=== PATIENT | male | born 1965 | race Caucasian/White ===

== ENCOUNTER 2017-02-02 02:16 | Emergency (ER) | payer BC ==
[~2017-02-02] VITALS: Ht 172.7 cm; Wt 94.3 kg
[2017-02-02] MEDS ORDERED: AUGMENTIN 875-1 EACH PO (02:34)
[2017-02-02] MEDS ORDERED: CETIRIZINE HCL10 MG PO (02:35)
[2017-02-02] MEDS ORDERED: PLAVIX75 M1 PO (02:35)
[2017-02-02] MEDS ORDERED: LIPITOR80 MG PO (02:35)
[2017-02-02] MEDS ORDERED: HYDROCHLOROTH12.5 M1 PO (02:36)
[2017-02-02] MEDS ORDERED: METOPROLOL25 MG PO (02:36)
[2017-02-02] MEDS ORDERED: VASCEPA1 GM PO (02:37)
[2017-02-02] MEDS ORDERED: PREDNISONE 20MG20 MG PO (03:25)
--- NOTE | 2017-02-02 03:26 | Emergency Room Report ---
History of Present Illness Time Seen by MD Daley Presenting Problem in Triage Pt arrived:Walked Presenting Problem:WAS DX WITH UPPER RESPIRATORY INFECTION ABOUT 2 WEEKS AGO, AND WAS FEELING BETTER THEN TONIGHT HE STARTED A COUGHING FIT AND FELT SOMETHING "POP" IN THE LOWER RIGHT SIDE UNDER HIS RIBS. 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 N Clinical Suspician of Infection? N Mental Status: 1 - Regular (Normal Baseline) Sepsis Risk:Low Sepsis Risk Have you (or family members/close friends) recently traveled outside the [place]? N If Yes, where/when: Have you had exposure to infectious disease within the past month? N TB? Other? Specify: Source patient, RN notes reviewed, family, old records Exam Limitations no limitations Comment after coughing episode has lt ant/lat rib pain- has bronchial illness and was seen by pcp this am Cardiac Chest Pain Chest pain indicative of cardiac No Timing/Duration this evening Severity moderate ALLERGIES Coded Allergies: No Known Allergies (02/02/17) Home Medications Reported Medications Amoxicillin/Potassium Clav (Augmentin 875-125 Tablet) 1 EACH PO BID Atorvastatin Calcium (Atorvastatin) 40 MG PO DAILY CETIRIZINE HCL (Cetirizine 10MG) 10 MG PO DAILY Clopidogrel Bisulfate (Plavix) 75 MG PO DAILY Hydrochlorothiazide (Hydrochlorothiazide 12.5MG) 25 MG PO DAILY Metoprolol Tartrate (Metoprolol) 12.5 MG PO QAM Icosapent Ethyl (Vascepa) 1 GM PO BID History Medical History General CAD? Yes Angina: No PR: No Hypertension? No Hyperlipidemia? No CHF? No DVT? No PE? No COPD? No Asthma? No Anemia? No GERD? No Gastric ulcers? No GI Bleed? No Hernia? No Thyroid Problems? No Hypothyroidism? No CVA? No Seizures? No Diabetes? No Renal Insuffiency? No End Stage Renal Disease? No UTI? No Stones? No BPH? No GB Disease: No Nephritic Syndrome? No Asplenia? No Hepatitis? No Sickle Cell Disease? No Arthritis? No Migraines? No Cataracts? No Glaucoma? No MRSA? No HIV? No TB? No Anxiety? No Depression? No Cancer? No More? No Immunization Hx Ped.Immunizations UTD No DT/Tetanus Unknown Surgical Hx Previous Surgery?Y HEART CATH c 2 STENTS Social History Smoking Hx Smoker: Never Smoker Tobacco: No Alcohol Alcohol: No Drugs none Review of Systems All Other Systems Reviewed and Negative Constitutional denies fever Eyes denies drainage ENT denies: ear discharge, epistaxis, throat pain. Respiratory see HPI, cough, denies shortness of breath, other Cardiovascular denies chest pain, denies syncope Gastrointestinal denies abdominal pain, denies diarrhea, denies vomiting Genitourinary denies: dysuria, frequency, hesitancy, hematuria. Musculoskeletal denies back pain, denies joint pain, denies neck pain Skin denies rash Psychiatric/Neurological denies headache, denies seizure Physical Exam Vital Signs Vital Signs Date Time Temp Pulse Resp B/P Pulse O2 O2 Flow FiO2 Ox Delivery Rate 02/02 0229 98.1 73 16 132/89 96 - WBC >12,000 or <4,000 or 10% bands? 2 or more SIRS Criteria Met? B/P:132/89 MAP:103 Creatinine >2.0? UA output<0.5ml/kg/hr for 2 hrs? Platelet count >100,000? Lactate >2.0mmol/1? INR >1.2 or PTT > than 60 sec? Evidence of Organ Dysfunction? Provider documented clinical suspician of infection? N Sepsis Criteria Count: 0 Sepsis Risk: Low Sepsis Risk General Appearance no apparent distress Eye Exam - bilateral eye PERRL, bilateral eye EOMI Ear, Nose, Throat normal ENT inspection Neck supple Respiratory Status No: respiratory distress. Lung Sounds bilateral: rhonchi. 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 No Results/Orders Orders Procedure Date/time Status CHEST(2 VIEWS-NOT PORTABLE) 02/02 0238 Active XRAY/CT/US XRAY/CT/US XRAY chest XR interpretation by reviewed by me Xray Results normal/NAD, no fracture seen Departure Departure Time of Disposition 323 Disposition DC Home or Self Care(routine) Clinical Impression Primary Impression: Sprain of ribs Qualifiers: Encounter type: initial encounter Qualified Code: S23.41XA - Sprain of ribs, initial encounter Condition STABLE Referrals Demetrius Pino MD (Family) Patient Instructions DI for Cough -- Adult Additional Instructions fluids and use meds and see pcp for follow up Discharge Counseling Counseled pt/family regarding diagnosis, test results, medications/RX, follow up needs Prescriptions Current Visit Scripts Prednisone (Prednisone 20MG) 20 MG PO BID #10 TAB ED Critical Care Critical Care No at 0326
[2017-02-02 03:51] VITALS: BP 131/92
--- NOTE | 2017-02-02 06:37 | RADIOLOGY REPORT PS360 ---
CHEST(2 VIEWS-NOT PORTABLE) HISTORY: COUGH, PLEURAL PAIN ORDERING PHYSICIAN: Nathanael Goodrich MD PATIENT AGE: 52 years COMPARISON: None available FINDINGS: The cardiomediastinal silhouette and pulmonary vascularity are within normal limits. There is a 8 mm nodule in the right midlung which may be due to granuloma. The remaining lungs are clear. No acute bony anomalies IMPRESSION: Right midlung nodule, no acute finding
== END 2017-02-02 03:52 | disposition home or self-care (01) ==
LOC: ER 02:16
DX: S23.41XA Sprain of ribs, initial encounter (principal); I25.10 Atherosclerotic heart disease of native coronary artery without angina pectoris; R05 Cough

== ENCOUNTER → 2017-04-01 | Outpatient (CLI) | payer BC ==
[~2017-04-01] MED LIST: AUGMENTIN 875-1 EACH PO; CETIRIZINE HCL10 MG PO; HYDROCHLOROTH12.5 M1 PO; LIPITOR80 MG PO; METOPROLOL25 MG PO; PLAVIX75 M1 PO; PREDNISONE 20MG20 MG PO; VASCEPA1 GM PO
[2017-04-01 18:02] LABS: BUN 13 mg/dL (7-18)
[2017-04-01 18:17] LABS: GFR (ESTIMATED) 89 ML/MIN (>60)
== END ==
LOC: LAB 15:55
PROVIDERS: Internal Medicine Cardiovascular Disease
DX: E78.4 Other hyperlipidemia (principal)